=== PATIENT | female | born 1960 | race Caucasian/White ===

== ENCOUNTER 2016-09-23 10:03 | Outpatient (CLI) | payer BC ==
--- NOTE | 2016-09-23 17:10 | DIAGNOSTIC IMAGING REPORT ---
PROCEDURE: MG BILATERAL SCREENING W/CAD INDICATION: SCREENING TECHNIQUE: Standard CC and MLO views bilaterally. Computer aided detection was used. COMPARISON: 12/07/2013, 05/25/2009, 09/08/2007 FINDINGS: Moderately dense fibroglandular tissue is present bilaterally. No developing densities, areas of architectural distortion, or suspicious microcalcifications. IMPRESSION: 1. Stable mammograms without radiographic evidence of malignancy. RESULT CODE: 1- Negative. A. A negative report should not delay biopsy if a dominant or clinically suspicious mass is present. 10-15% of cancers are not identified by x-ray. B. A negative report may reinforce clinical impression. C. Adenosis and dense breasts may obscure an underlying neoplasm. D. False positive reports average 6-10%. E.. A yearly screening mammogram is recommended. A reminder letter will be scheduled.
--- NOTE | 2016-09-30 15:11 | DIAGNOSTIC IMAGING REPORT ---
REFERRING PHYSICIAN/PROVIDER: Aristeo Carroll MD CONSULTING ASSISTANT PROFESSOR OF NURSING: Keyur Rivas MD PROCEDURE: M-mode 2D echocardiography with spectral and color flow Doppler TECHNICAL QUALITY: Fair INDICATION: MURMMER, EDEMA ANKLE; CHEST PAIN RHYTHM DURING PROCEDURE: Atrial fibrillation INTERPRETATIONS: LEFT VENTRICLE: There is mild concentric left ventricular hypertrophy. The posterior wall measures 1.3 cm and the septal wall is 1.2 cm. The is mild left ventricular enlargement. There is normal left ventricular systolic function ( LVEF = 62%). Grade I diastolic dysfunction. RIGHT VENTRICLE: There is a dilated right ventricle with mild to moderately reduced systolic function ATRIA: Severe biatrial enlargement. MITRAL VALVE: There is trace mitral regurgitation AORTIC VALVE: The aortic valve is trileaflet. There is aortic sclerosis without evidence of aortic stenosis. There is no aortic regurgitation. TRICUSPID VALVE: Normal tricuspid valve leaflets. There is trace tricuspid regurgitation. The estimated right ventricular systolic pressure is 48 mmHg. PULMONIC VALVE: There is trace pulmonic regurgitation GREAT VESSELS: Mildly dilated ascending aorta 3.9 cm. PERICARDIUM: No evidence of a pericardial effusion. IMPRESSION: 1. Mild concentric left ventricular hypertrophy 2. Mildly dilated left ventricle with normal left ventricular systolic function (LVEF = 62%) 3. Mildly dilated right ventricle with mildly reduced right ventricular systolic function 4. Severe biatrial enlargement 5. Mild aortic sclerosis without stenosis 6. Moderately increased right ventricular systolic pressure (RVSP = 48 mmHg) 7. Mildly dilated ascending aorta 3.9 cm
== END 2016-09-23 23:00 | disposition home or self-care (01) ==
LOC: MAM SRH 10:03 → US SRH 10:30 → MAM SRH 23:00
DX: R07.9 Chest pain, unspecified (principal); Z12.31 Encounter for screening mammogram for malignant neoplasm of breast